=== PATIENT | male | born 1945 | race Caucasian/White ===

== ENCOUNTER 2018-11-29 06:19 | Observation (INO) | payer MEDICARE, OTHER ==
[2018-11-29] MEDS ORDERED: SUCCINYLCHOLINE CHLORIDE 100 MG/5 ML SYG IV (07:00)
[2018-11-29] MEDS ORDERED: PROPOFOL 200 MG INJ (07:00)
[2018-11-29] MEDS ORDERED: ROCURONIUM 50 MG INJ (07:00)
[2018-11-29] MEDS ORDERED: FENTAnyl 50 MCG/ML VIAL (09:16)
[2018-11-29] MEDS ORDERED: LIDOCAINE 1% (MDV) 20 ML INJ (09:16)
[2018-11-29] MEDS ORDERED: ETOMIDATE 20 MG INJ (09:16)
[2018-11-29] MEDS ORDERED: MIDAZOLAM 1 MG/ML 2 ML INJ (09:16)
[2018-11-29] MEDS ORDERED: CIPROFLOXACIN 400MG/D5W 200 ML (09:42)
[2018-11-29] MEDS ORDERED: ONDANSETRON 4 MG INJ (09:47)
[2018-11-29] MEDS ORDERED: DEXAMETHASONE 4 MG/ML 5 ML INJ (09:47)
[2018-11-29] MEDS ORDERED: GLYCOPYRROLATE 0.4 MG INJ (11:01)
[2018-11-29] MEDS ORDERED: NEOSTIGMINE 3 MG/3 ML SYRINGE (11:01)
[2018-11-29] MEDS: BELLADONNA ALK/OPIUM SUPP PR ×2 (11:29→11:30)
[2018-11-29] MEDS ORDERED: HYDROmorphONE 1 MG/5 ML IV SYRINGE IV (11:30)
[2018-11-29] MEDS: HYDROmorphONE 1 MG/5 ML IV SYRINGE IV ×2 (12:04→12:17)
[2018-11-29] MEDS: ONDANSETRON 4 MG INJ IV (12:04)
[2018-11-29] MEDS: DEXTROSE 5%-0.45% NACL 1,000 ML IV (12:29)
[2018-11-29] MEDS ORDERED: HYDROCODONE/APAP (5/325) TAB PO (12:30)
[2018-11-29] MEDS ORDERED: MAGNESIUM HYDROXIDE 30ML CUP PO (12:30)
[2018-11-29 13:18] LABS: ADD MAN DIFF? NO
[2018-11-29 13:21] LABS: BASOPHILS % 0.3 % (0.0-2.0); EOSINOPHILS # 0.1 10^3/ul (0.0-0.5); EOSINOPHILS % 0.5 % (0.0-7.0); HEMATOCRIT 37.1 % (42.0-52.0); LYMPHOCYTES # 1.1 10^3/ul (0.8-2.9); LYMPHOCYTES % 10.3 % (15.0-51.0); MEAN CORPUSCULAR HEMOGLOBIN 27.8 pg (29.0-33.0); MEAN CORPUSCULAR HGB CONC 32.3 g/dl (32.0-37.0); MEAN CORPUSCULAR VOLUME 85.9 fl (82.0-101.0); MEAN PLATELET VOLUME 9.7 fl (7.4-10.4); MONOCYTE # 0.2 10^3/ul (0.3-0.9); MONOCYTES % 1.6 % (0.0-11.0); NEUTROPHIL # 9.5 10^3/ul (1.6-7.5); NEUTROPHILS % 86.6 % (39.0-77.0); PLATELET COUNT 215 10^3/UL (140-415); RED BLOOD COUNT 4.32 10^6/ul (4.70-6.10); RED CELL DISTRIBUTION WIDTH 13.3 % (11.5-14.5)
[2018-11-29] MEDS: CIPROFLOXACIN 500 MG TAB PO (17:52)
[2018-11-29] MEDS: BENZONATATE 100 MG CAP PO (17:52)
[2018-11-29] MEDS: PANTOPRAZOLE (EC) 40 MG TAB PO (17:52)
[2018-11-29] MEDS: DOCUSATE SODIUM 100 MG CAP PO (20:15)
[2018-11-30] MEDS: AL HYDROX/MG HYDROX/SIMETH 30 ML CUP PO (01:35)
[2018-11-30] MEDS: PANTOPRAZOLE (EC) 40 MG TAB PO (05:47)
[2018-11-30] MEDS: CIPROFLOXACIN 500 MG TAB PO (05:47)
[2018-11-30 05:50] LABS: ADD MAN DIFF? NO
[2018-11-30] MEDS: DEXTROSE 5%-0.45% NACL 1,000 ML IV (05:50)
[2018-11-30 06:15] LABS: WHITE BLOOD COUNT 20.6 10^3/ul (4.8-10.8)
[2018-11-30 06:15] LABS: BASOPHILS % 0.1 % (0.0-2.0); HEMATOCRIT 34.6 % (42.0-52.0); HEMOGLOBIN 11.5 g/dl (14.0-18.0); LYMPHOCYTES # 1.6 10^3/ul (0.8-2.9); MEAN CORPUSCULAR HEMOGLOBIN 27.8 pg (29.0-33.0); MEAN CORPUSCULAR HGB CONC 33.2 g/dl (32.0-37.0); MEAN CORPUSCULAR VOLUME 83.6 fl (82.0-101.0); MEAN PLATELET VOLUME 10.5 fl (7.4-10.4); MONOCYTES % 4.9 % (0.0-11.0); NEUTROPHIL # 17.8 10^3/ul (1.6-7.5); NEUTROPHILS % 86.5 % (39.0-77.0); PLATELET COUNT 259 10^3/UL (140-415); RED BLOOD COUNT 4.14 10^6/ul (4.70-6.10); RED CELL DISTRIBUTION WIDTH 13.1 % (11.5-14.5)
[2018-11-30 06:53] LABS: ANION GAP 8 (5-13); BLOOD UREA NITROGEN 12 mg/dl (7-20); CALCIUM 9.1 mg/dl (8.4-10.2); CARBON DIOXIDE 29 mmol/L (21-31); CHLORIDE 103 mmol/L (97-110); CREATININE 0.89 mg/dl (0.61-1.24); GLUCOSE 121 mg/dl (70-220); POTASSIUM 3.9 mmol/L (3.5-5.1); SODIUM 140 mmol/L (135-144)
[2018-11-30] MEDS: DOCUSATE SODIUM 100 MG CAP PO (10:32)
== END 2018-11-30 12:18 | disposition home or self-care (01) ==
LOC: SDS 06:19 → REC 12:05 → PP2 13:01
PROVIDERS: Urology
DX: N40.1 Benign prostatic hyperplasia with lower urinary tract symptoms (principal); N13.8 Other obstructive and reflux uropathy; N42.89 Other specified disorders of prostate; K21.9 Gastro-esophageal reflux disease without esophagitis; E78.5 Hyperlipidemia, unspecified; E66.3 Overweight; Z68.27 Body mass index [BMI] 27.0-27.9, adult; D64.9 Anemia, unspecified
CPT/HCPCS: 52601; 80048; 85025; 88307